=== PATIENT | female | born 1985 | race Caucasian/White ===

== ENCOUNTER 2016-09-01 11:47 | Outpatient (CLI) | payer OTHER ==
[~2016-09-01 11:47] MED LIST: CALC-545 PO; DOCU-30 PO; HYDR-3240 PO; IBUP-1222 PO; OXYC-302 PO; PREN1TAB28 PO
== END 2016-09-01 15:03 | disposition home or self-care (01) ==
LOC: LDOP 11:47
PROVIDERS: ATTEND Obstetrics & Gynecology
DX: O26.893 Other specified pregnancy related conditions, third trimester (principal); R10.9 Unspecified abdominal pain; Z3A.38 38 weeks gestation of pregnancy
CPT/HCPCS: 59025; 81001; 87086; 99211; G0463

== ENCOUNTER 2016-09-03 21:06 | Outpatient (CLI) | payer OTHER ==
[~2016-09-03] VITALS: Ht 165.1 cm; Wt 81.8 kg
[2016-09-03 21:44] VITALS: BP 114/62
== END 2016-09-03 22:55 | disposition home or self-care (01) ==
LOC: LDOP 21:06
PROVIDERS: ATTEND Obstetrics & Gynecology
DX: O46.93 Antepartum hemorrhage, unspecified, third trimester (principal); O26.893 Other specified pregnancy related conditions, third trimester; O62.9 Abnormality of forces of labor, unspecified; R10.9 Unspecified abdominal pain; Z3A.39 39 weeks gestation of pregnancy
CPT/HCPCS: 59025; 99211; G0463

== ENCOUNTER 2016-09-04 08:00 | Inpatient (IN) | payer OTHER ==
[~2016-09-04] VITALS: Ht 165.1 cm; Wt 83.6 kg
[2016-09-04] MEDS ORDERED: OXYTOCIN 30U/ 0.9% NaCL 500ML 500 ML IV ONE (08:25)
[2016-09-04] MEDS ORDERED: AMPICILLIN 2 GM in SODIUM CHLORIDE 0.9% 100 ML IVPB ONE (08:30)
[2016-09-04] MEDS ORDERED: FENTANYL PF 100 MCG/2ML IV PRN (08:30)
[2016-09-04] MEDS ORDERED: FENTANYL PF 100 MCG/2ML IVPush PRN (08:30)
[2016-09-04] MEDS ORDERED: ONDANSETRON 2MG/ML, 2ML ONE ×3 (08:34→18:00)
[2016-09-04] MEDS ORDERED: FENTANYL PF 100 MCG/2ML ONE (08:34)
[2016-09-04] MEDS ORDERED: OXYTOCIN 30U/ 0.9% NaCL 500ML 500 ML ONE ×2 (08:35→16:21)
[2016-09-04] MEDS ORDERED: CALCIUM CARBONATE 500 MG TAB.CHEW ONE ×2 (08:35→14:29)
[2016-09-04] MEDS: CALCIUM CARBONATE 500 MG TAB.CHEW PO PRN ×2 (08:39→14:34)
[2016-09-04] MEDS: LACTATED RINGERS 1,000 ML IV SCH ×3 (08:50→19:45)
[2016-09-04] MEDS: ONDANSETRON 2MG/ML, 2ML IVPush PRN ×2 (08:51→13:05)
[2016-09-04 08:57] VITALS: BP 128/75
[2016-09-04] MEDS ORDERED: NEWBORN KIT ONE (09:17)
[2016-09-04 09:35] LABS: DIFF TOTAL CELLS COUNTED 100 CELL DIFF
[2016-09-04 09:37] LABS: VERIFY COUNTS? YES
[2016-09-04] MEDS ORDERED: OXYTOCIN 30U/ 0.9% NaCL 500ML 500 ML IV PRN (10:23)
[2016-09-04] MEDS ORDERED: FENTANYL/BUPIV./NS/PF 250 ML EPIDCONT ONE (10:25)
[2016-09-04] MEDS ORDERED: LIDOCAINE/PF 1.5%-EPI 1:200K, 30ML ONE (10:26)
[2016-09-04] MEDS ORDERED: FENTANYL/BUPIV./NS/PF 250 ML EPIDCONT SCH (10:54)
[2016-09-04] MEDS ORDERED: LACTATED RINGERS 1,000 ML IVBOLUS PRN (11:00)
[2016-09-04] MEDS ORDERED: AMPICILLIN 1 GM in SODIUM CHLORIDE 0.9% 50 ML IVPB SCH (12:30)
[2016-09-04] MEDS ORDERED: MISOPROSTOL 200 MCG TABLET ONE ×2 (15:48→17:11)
[2016-09-04] MEDS ORDERED: LIDOCAINE 1%, 20ML ONE (15:48)
[2016-09-04] MEDS ORDERED: OXYcodone/APAP 5/325MG TABLET PO PRN (16:30)
[2016-09-04] MEDS ORDERED: MISOPROSTOL 200 MCG TABLET SL PRN (16:30)
[2016-09-04] MEDS ORDERED: ACETAMINOPHEN 325 MG TABLET PO PRN (16:30)
[2016-09-04] MEDS: OXYTOCIN 30U/ 0.9% NaCL 500ML 500 ML IV SCH (16:42)
[2016-09-04] MEDS ORDERED: OXYcodone/APAP 5/325MG TABLET ONE (18:00)
[2016-09-04] MEDS: OXYcodone/APAP 5/325MG TABLET PO PRN ×2 (18:02→23:55)
[2016-09-04] MEDS: ONDANSETRON 2MG/ML, 2ML IV PRN ×2 (18:02→23:55)
[2016-09-04 19:50] VITALS: BP 118/77
[2016-09-04] MEDS: DOCUSATE 100 MG CAPSULE PO PRN (21:17)
[2016-09-04] MEDS: IBUPROFEN 600 MG TABLET PO PRN (21:17)
[2016-09-04 23:55] VITALS: BP 115/76
[2016-09-05] MEDS: OXYTOCIN 30U/ 0.9% NaCL 500ML 500 ML IV SCH (02:01)
[2016-09-05] MEDS: LACTATED RINGERS 1,000 ML IV SCH (02:54)
[2016-09-05 05:25] VITALS: BP 126/78
[2016-09-05] MEDS: OXYcodone/APAP 5/325MG TABLET PO PRN ×2 (06:38→14:22)
[2016-09-05] MEDS: ONDANSETRON 2MG/ML, 2ML IV PRN (06:38)
[2016-09-05] MEDS: IBUPROFEN 600 MG TABLET PO PRN ×2 (06:38→14:22)
[2016-09-05 08:30] VITALS: BP 129/76
[2016-09-05] MEDS ORDERED: PRENATAL VIT/IRON/FA 1 EACH TABLET PO SCH (09:00)
[2016-09-05] MEDS: DOCUSATE 100 MG CAPSULE PO PRN (10:02)
[2016-09-05 12:37] VITALS: BP 112/70
== END 2016-09-05 15:30 | disposition home or self-care (01) | DRG 775 ==
LOC: LDOP 08:00 → LDIP 08:31 → 2NW 19:24
PROVIDERS: ADMIT Obstetrics & Gynecology; ATTEND Obstetrics & Gynecology
PROC: 10E0XZZ Delivery of Products of Conception, External Approach (ICD-10-PCS; principal; 2016-09-04)
PROC: 10907ZC Drainage of Amniotic Fluid, Therapeutic from Products of Conception, Via Natural or Artificial Opening (ICD-10-PCS; 2016-09-04)
PROC: 3E0R3CZ (ICD-10-PCS; 2016-09-04)
PROC: 00HU33Z Insertion of Infusion Device into Spinal Canal, Percutaneous Approach (ICD-10-PCS; 2016-09-04)
DX: O99.824 Streptococcus B carrier state complicating childbirth (principal); O99.354 Diseases of the nervous system complicating childbirth; G43.909 Migraine, unspecified, not intractable, without status migrainosus; Z37.0 Single live birth; Z3A.39 39 weeks gestation of pregnancy
CPT/HCPCS: 36415; 85025; 86850; 86900; J0290; J2405; J3010; J2590; J7120

== ENCOUNTER 2020-01-09 04:25 | Inpatient (IN) | payer OTHER ==
[~2020-01-09] VITALS: Ht 165.1 cm; Wt 89.5 kg
[~2020-01-09 04:25] MED LIST changes: +DOCU-131 PO; -DOCU-30 PO
[2020-01-09] MEDS ORDERED: OXYTOCIN 30U/ 0.9% NaCL 500ML 500 ML IV PRN (04:30)
[2020-01-09] MEDS ORDERED: TERBUTALINE 1 MG/ML, 1ML IVPush PRN (04:30)
[2020-01-09] MEDS ORDERED: D5%-LACTATED RINGERS 1,000 ML IV SCH (04:30)
[2020-01-09] MEDS ORDERED: TERBUTALINE 1 MG/ML, 1ML SQ PRN (04:30)
[2020-01-09] MEDS ORDERED: FENTANYL PF 100 MCG/2ML IV PRN (04:30)
[2020-01-09] MEDS ORDERED: FENTANYL PF 100 MCG/2ML IVPush PRN (04:30)
[2020-01-09] MEDS ORDERED: ONDANSETRON 2MG/ML, 2ML IVPush PRN ×2 (04:30→16:30)
[2020-01-09] MEDS ORDERED: OXYTOCIN 30U/ 0.9% NaCL 500ML 500 ML IV ONE (04:30)
[2020-01-09] MEDS ORDERED: NEWBORN KIT ONE ×2 (04:36→22:36)
[2020-01-09] MEDS ORDERED: MISOPROSTOL 200 MCG TABLET ONE (04:36)
[2020-01-09] MEDS ORDERED: OXYTOCIN 30U/ 0.9% NaCL 500ML 500 ML ONE ×3 (04:36→23:27)
[2020-01-09] MEDS ORDERED: LIDOCAINE 1%, 20ML ONE (04:36)
[2020-01-09 05:28] LABS: BASOPHILS % (AUTO) 1 % (0-1); EOSINOPHILS % (AUTO) 1 % (1-7); LYMPHOCYTES % (AUTO) 20 % (22-44); MEAN CORPUSCULAR HEMOGLOBIN 31.1 pg (27.0-34.8); MEAN CORPUSCULAR HGB CONC 34.4 g/dL (32.4-35.8); MEAN PLATELET VOLUME 7.8 fL (7.4-10.4); MONOCYTES % (AUTO) 5 % (2-9); NEUTROPHILS % (AUTO) 74 % (42-75); PLATELET COUNT 243 x10^3/uL (130-400)
[2020-01-09 05:29] LABS: MD NO
[2020-01-09] MEDS ORDERED: MISOPROSTOL 25 MCG TABLET VG PRN (06:00)
[2020-01-09] MEDS ORDERED: MISOPROSTOL 25 MCG TABLET ONE (06:28)
[2020-01-09] MEDS: LACTATED RINGERS 1,000 ML IV SCH ×2 (12:45→15:13)
[2020-01-09] MEDS ORDERED: BUPIVACAINE 0.25% ONE (15:32)
[2020-01-09] MEDS ORDERED: FENTANYL/BUPIV./NS/PF 250 ML EPIDCONT ONE (15:32)
[2020-01-09] MEDS ORDERED: FENTANYL PF 100 MCG/2ML ONE (15:32)
[2020-01-09] MEDS ORDERED: LACTATED RINGERS 1,000 ML IV SCH (16:30)
[2020-01-09] MEDS ORDERED: LACTATED RINGERS 1,000 ML IVBOLUS PRN (16:30)
[2020-01-09] MEDS ORDERED: FENTANYL/BUPIV./NS/PF 250 ML EPIDCONT SCH (16:30)
[2020-01-09] MEDS ORDERED: EPHEDRINE 50 MG/ML, 1ML IVPush PRN (16:30)
[2020-01-09] MEDS ORDERED: SODIUM CITRATE/CITRIC ACID 30 ML UDC PO ONE (17:30)
[2020-01-09] MEDS ORDERED: TERBUTALINE 1 MG/ML, 1ML ONE (19:31)
[2020-01-09] MEDS ORDERED: EPHEDRINE 50 MG/ML, 1ML ONE (19:31)
[2020-01-09] MEDS ORDERED: METOCLOPRAMIDE 5 MG/ML, 2ML ONE (19:54)
[2020-01-09] MEDS ORDERED: METOCLOPRAMIDE 5 MG/ML, 2ML IVPush SCH (20:00)
[2020-01-09] MEDS ORDERED: SIMETHICONE 80 MG CHEW TAB PO PRN (22:30)
[2020-01-09] MEDS: OXYTOCIN 30U/ 0.9% NaCL 500ML 500 ML IV SCH (22:30)
[2020-01-10 00:50] VITALS: BP 111/66
[2020-01-10] MEDS ORDERED: ACETAMINOPHEN 325 MG TABLET PO PRN (01:30)
[2020-01-10] MEDS ORDERED: OXYcodone IR 5MG TABLET PO PRN ×2 (01:30)
[2020-01-10] MEDS: IBUPROFEN 600 MG TABLET PO PRN ×4 (02:43→21:30)
[2020-01-10] MEDS: ONDANSETRON 2MG/ML, 2ML IV PRN ×2 (02:55→08:42)
[2020-01-10] MEDS ORDERED: METOCLOPRAMIDE 5 MG/ML, 2ML IV PRN (03:00)
[2020-01-10 05:20] VITALS: BP 103/67
[2020-01-10] MEDS: ACETAMINOPHEN 325 MG TABLET PO PRN ×3 (06:16→21:30)
[2020-01-10 08:05] LABS: BASOPHILS % (AUTO) 1 % (0-1); EOSINOPHILS % (AUTO) 1 % (1-7); LYMPHOCYTES % (AUTO) 9 % (22-44); MEAN CORPUSCULAR HEMOGLOBIN 30.6 pg (27.0-34.8); MEAN CORPUSCULAR HGB CONC 33.7 g/dL (32.4-35.8); MEAN PLATELET VOLUME 7.9 fL (7.4-10.4); MONOCYTES % (AUTO) 4 % (2-9); NEUTROPHILS % (AUTO) 86 % (42-75); PLATELET COUNT 231 x10^3/uL (130-400); RED BLOOD COUNT 3.43 x10^6/uL (3.82-5.3); RED CELL DISTRIBUTION WIDTH 14.7 % (9.6-15.2)
[2020-01-10 08:26] VITALS: BP 126/76
[2020-01-10] MEDS: OXYTOCIN 30U/ 0.9% NaCL 500ML 500 ML IV SCH ×2 (08:30→18:30)
[2020-01-10] MEDS: DOCUSATE 100 MG CAPSULE PO PRN ×2 (08:39→21:30)
[2020-01-10] MEDS: PRENATAL VIT/IRON/FA 1 EACH TABLET PO SCH (08:39)
[2020-01-10 09:05] LABS: MD SCAN
[2020-01-10 13:15] VITALS: BP 115/73
[2020-01-10 19:55] VITALS: BP 118/76
[2020-01-11] MEDS: OXYTOCIN 30U/ 0.9% NaCL 500ML 500 ML IV SCH (04:30)
[2020-01-11 07:35] VITALS: BP 124/81
[2020-01-11] MEDS: DOCUSATE 100 MG CAPSULE PO PRN (07:38)
[2020-01-11] MEDS: IBUPROFEN 600 MG TABLET PO PRN (07:38)
[2020-01-11] MEDS: PRENATAL VIT/IRON/FA 1 EACH TABLET PO SCH (07:38)
[2020-01-11] MEDS ORDERED: IBUP-1222 PO ×2 (08:11→08:12)
== END 2020-01-11 10:10 | disposition home or self-care (01) | DRG 807 ==
LOC: LDIP 04:25 → 2NW 01-10 00:40
PROVIDERS: ADMIT Obstetrics & Gynecology; ATTEND Obstetrics & Gynecology
PROC: 3E0R3BZ Introduction of Anesthetic Agent into Spinal Canal, Percutaneous Approach (ICD-10-PCS; principal; 2020-01-09)
PROC: 00HU33Z Insertion of Infusion Device into Spinal Canal, Percutaneous Approach (ICD-10-PCS; 2020-01-09)
PROC: 3E033VJ Introduction of Other Hormone into Peripheral Vein, Percutaneous Approach (ICD-10-PCS; 2020-01-09)
PROC: 10E0XZZ Delivery of Products of Conception, External Approach (ICD-10-PCS; 2020-01-11)
PROC: 10907ZC Drainage of Amniotic Fluid, Therapeutic from Products of Conception, Via Natural or Artificial Opening (ICD-10-PCS; 2020-01-11)
DX: O80 Encounter for full-term uncomplicated delivery (principal); Z37.0 Single live birth; Z20.828 Contact with and (suspected) exposure to other viral communicable diseases; Z3A.39 39 weeks gestation of pregnancy
CPT/HCPCS: 36415; 85025; 86592; 86850; 86900; 87635; G0378; J2405; J2590; J3010; J7120